=== PATIENT | female | born 1950 | race African-American/Black ===

== ENCOUNTER 2016-09-30 10:48 | Emergency (ER) | payer MEDICARE ==
[~2016-09-30] VITALS: Ht 162.6 cm; Wt 104.8 kg
[~2016-09-30 10:48] MED LIST: ASPI-482 PO; CALC60SU TP; CHOL20002 PO; CRESTOR10 MG PO; LANS15CA66 PO; LISI40TA PO; OXYC-323 PO; TRIA1TAB3 PO; VITA1000 PO
[2016-09-30 11:08] VITALS: BP 145/80
[2016-09-30] MEDS ORDERED: CHLO15MO2 PO (12:18)
--- NOTE | 2016-09-30 12:18 | PHYS DOC ---
Past Medical History Past Medical History: Hypertension Past Surgical History: No Surgical History Alcohol Use: Occasionally Drug Use: None Adult General Chief Complaint Chief Complaint: OTHER COMPLAINTS [facility] Patient is a 66 year old female presents with a complaint of a sweet taste on her mouth that began last night when she was eating at [employer]. She states that she ate her typical no that she usually does but somehow had a lingering sweet flavor. She states that this is continued on through today. She reports that she has been salivating a little bit more than usual. But did not have any difficulty swallowing. She does have a history of acid reflux. She denies any reflux symptomatology at this time. She denies any swelling under her tongue or cheeks when she eats or drinks. Review of Systems Review of Systems Constitutional: Denies fever or chills [] Eyes: Denies change in visual acuity, redness, or eye pain [] HENT: Denies nasal congestion or sore throat [] Respiratory: Denies cough or shortness of breath [] Cardiovascular: No additional information not addressed in HPI [] GI: Denies abdominal pain, nausea, vomiting, bloody stools or diarrhea [] : Denies dysuria or hematuria [] Musculoskeletal: Denies back pain or joint pain [] Integument: Denies rash or skin lesions [] Neurologic: Denies headache, focal weakness or sensory changes [] Endocrine: Denies polyuria or polydipsia [] Allergies Allergies Allergies Coded Allergies Type Severity Reaction Last Updated Verified No Known Drug Allergies 03/13/15 No Physical Exam Physical Exam Constitutional: Well developed, well nourished, no acute distress, non-toxic appearance. [] HENT: Normocephalic, atraumatic, bilateral external ears normal, oropharynx moist, no oral exudates, nose normal. There is no evidence of prostatitis, excessive salivation, tumors or masses in the buccal cavity. Eyes: PERRLA, EOMI, conjunctiva normal, no discharge. [] Neck: Normal range of motion, no tenderness, supple, no stridor. Patient is able to swallow. There is no palpable tumors or masses that anterior soft tissue neck. Cardiovascular:Heart rate regular rhythm, no murmur [] Lungs & Thorax: Bilateral breath sounds clear to auscultation [] Abdomen: Bowel sounds normal, soft, no tenderness, no masses, no pulsatile masses. [] Skin: Warm, dry, no erythema, no rash. [] Back: No tenderness, no CVA tenderness. [] Extremities: No tenderness, no cyanosis, no clubbing, ROM intact, no edema. [] Neurologic: Alert and oriented X 3, normal motor function, normal sensory function, no focal deficits noted. [] Psychologic: Affect normal, judgement normal, mood normal. [] Current Patient Data Vital Signs Vital Signs Date Time Temp Pulse Resp B/P Pulse Ox O2 Delivery O2 Flow Rate FiO2 09/30/16 11:08 97.7 78 18 98 Room Air 97.7 EKG EKG [] Radiology/Procedures Radiology/Procedures [] Course & Med Decision Making Course & Med Decision Making Pertinent Labs and Imaging studies reviewed. (See chart for details) [] Dragon Disclaimer Dragon Disclaimer This electronic medical record was generated, in whole or in part, using a voice recognition dictation system. Departure Departure Impression: Primary Impression: Altered taste Disposition: 01 HOME, SELF-CARE Condition: GOOD Referrals: ESTELLA BRIAN Jr, MD (PCP) Additional Instructions: 1. You presented to the emergency room today with concerns for sweet taste in your mouth. 2. There is no evidence of abnormality to your tongue, the lining of your mouth. There are no palpable defects to the spit glands on neck. 3. Use the mouthwash as prescribed. Begin taking the Prevacid again. 3. Follow-up with your primary care doctor within a week. Scripts Chlorhexidine Gluconate (Peridex)15 Ml [id number] Ml PO TID #473 ML Ref 3 Prov:WAYNE ROSAS 09/30/16 WAYNE ROSAS Sep 30, 2016 12:18
== END 2016-09-30 12:30 | disposition home or self-care (01) ==
LOC: ER 10:48
DX: R43.8 Other disturbances of smell and taste (principal); I10 Essential (primary) hypertension
CPT/HCPCS: 99283